=== PATIENT | male | born 1965 | race Caucasian/White ===

== ENCOUNTER 2019-02-06 22:22 | Emergency (ER) | payer SELFPAY ==
[~2019-02-06] VITALS: Ht 162.6 cm; Wt 87.0 kg
[2019-02-06] MEDS ORDERED: SODIUM CHLORIDE 0.9% 1,000 ML IV ONE (22:41)
[2019-02-06] MEDS ORDERED: ONDANSETRON HCL 4MG/2ML INJ IV STA (22:41)
[2019-02-06] MEDS ORDERED: MORPHINE SULFATE 4 MG/ML CPJ (NOT FOR IM USE) IV ONE (23:30)
[2019-02-06 23:46] LABS: HEMATOCRIT. 46.4 % (42.0-52.0); HEMOGLOBIN. 15.9 g/dL (14.0-18.0); MEAN CORPUSCULAR HEMOGLOBIN 30.2 pg (28.0-32.0); MEAN CORPUSCULAR VOLUME 87.8 fL (80.0-94.0); MEAN PLATELET VOLUME 9.6 fl (7.4-10.4); PLATELET 204 x1000/uL (130-400); RED BLOOD CELL COUNT 5.28 mill/uL (4.7-6.1); RED CELL DISTRIBUTION WIDTH 13.6 % (11.6-14.6)
[2019-02-06 23:48] LABS: CHLORIDE 107 mEq/L (98-107)
[2019-02-06 23:53] LABS: ETHANOL BLOOD < 10 mg/dL
[2019-02-07 01:43] LABS: PLATELET ESTIMATE NORMAL
[2019-02-07 02:40] VITALS: BP 165/95
== END 2019-02-07 02:40 | disposition home or self-care (01) ==
LOC: ER 22:22
DX: S02.2XXA Fracture of nasal bones, initial encounter for closed fracture (principal); S09.8XXA Other specified injuries of head, initial encounter; R07.89 Other chest pain; I10 Essential (primary) hypertension; Y04.0XXA Assault by unarmed brawl or fight, initial encounter; Y93.89 Activity, other specified; Y92.524 Gas station as the place of occurrence of the external cause
CPT/HCPCS: 36415; 70450; 70486; 71045; 80053; 80320; 84484; 85025; 93005; 96374; 96375; 99284; J2270; J2405; J7030; G0480